=== PATIENT | male | born 1955 | race Caucasian/White ===

== ENCOUNTER 2016-04-10 09:46 | Outpatient (CLI) ==
[2013-08-04 13:20] VITALS: BMI 26.5
[2016-04-10] MEDS ORDERED: LIDOCAINE 1 % AMP 5 ML (SUTURES) IM STA (09:56)
[2016-04-10] MEDS ORDERED: ROCEPHIN IM STA (09:56)
[2016-04-10 10:07] VITALS: BP 136/80; TEMP 98
== END 2016-04-10 09:47 | disposition home or self-care (01) ==
LOC: OPMED 09:46
PROVIDERS: ATTEND Emergency Medicine
DX: J03.90 Acute tonsillitis, unspecified (principal)
CPT/HCPCS: 96372

== ENCOUNTER 2016-04-11 09:45 | Outpatient (CLI) ==
[2013-08-04 13:20] VITALS: BMI 26.5
[2016-04-11] MEDS ORDERED: ROCEPHIN IM STA (09:55)
[2016-04-11] MEDS ORDERED: LIDOCAINE 1 % AMP 5 ML (SUTURES) IM STA (09:55)
[2016-04-11 10:12] VITALS: BP 134/76; TEMP 98.1
== END 2016-04-11 09:46 | disposition home or self-care (01) ==
LOC: OPMED 09:45
PROVIDERS: ATTEND Emergency Medicine
DX: J03.90 Acute tonsillitis, unspecified (principal)
CPT/HCPCS: 96372

== ENCOUNTER 2016-09-11 10:24 | Day surgery (SDC) ==
[2013-08-04 13:20] VITALS: BMI 26.5
[2016-09-11] MEDS ORDERED: DIPRIVAN 20 ML VIAL IVP ONE (13:00)
[2016-09-11] MEDS ORDERED: VERSED ONE (13:00)
[2016-09-11] MEDS ORDERED: ROBINOL ONE (13:00)
[2016-09-11] MEDS ORDERED: ZEMURON ONE (13:00)
[2016-09-11] MEDS ORDERED: LARYNGO-JET TP ONE (13:00)
[2016-09-11] MEDS ORDERED: NEOSTIGMINE IVP ONE (13:00)
[2016-09-11] MEDS ORDERED: SUFENTA IVP ONE (13:00)
[2016-09-11] MEDS ORDERED: ROCEPHIN 1 GM in SODIUM CHLORIDE 50 ML IV ONE ×2 (13:13→13:35)
[2016-09-11] MEDS ORDERED: DEMEROL 25 MG/ML SYRINGE IV ONE (14:35)
[2016-09-11 15:33] VITALS: BP 117/75; TEMP 98.3
--- NOTE | 2016-09-12 11:41 | OP ---
PREOPERATIVE DIAGNOSIS: 1. LEFT PERITONSILLAR ABSCESS POSTOPERATIVE DIAGNOSIS: 1. REMOVAL OF LEFT PERITONSILLAR ABSCESS PROCEDURE: The patient was taken to surgery, placed on the table and general anesthesia was administered. A gastric tube was inserted in the stomach and was suctioned. A Raiza-[place] mouth gag was then inserted and the left tonsil was grasped in the area of the superior pole. Incision was made through the peritonsillar abscess at phlegmon area. Dissection was carried down to the base of the tongue. The tonsil was removed. Synchronized swelling of the tonsillar area as well as pharyngeal wall area. A 22 needle was inserted in the area but no abscess was noted. Bleeding was controlled with cauterization. The patient was then extubated and returned to the recovery room in satisfactory condition. MACIEJ
[2016-09-15 08:36] LABS: ANAEROBIC CULTURE Final report (.)
== END 2016-09-11 15:30 | disposition home or self-care (01) ==
LOC: SURG 10:24
PROVIDERS: ATTEND Otolaryngology
DX: J36 Peritonsillar abscess (principal); D10.4 Benign neoplasm of tonsil
CPT/HCPCS: 36415; 87070; 87075

== ENCOUNTER 2016-11-13 21:04 | Emergency (ER) ==
[2016-11-13 21:20] VITALS: BP 139/93; TEMP 98.4; BMI 27.2
[2016-11-13] MEDS ORDERED: DUONEB NEB STA (21:45)
[2016-11-13] MEDS ORDERED: BENADRYL IM STA (21:45)
[2016-11-13] MEDS ORDERED: SOLU-MEDROL 125 MG IM STA (21:45)
--- NOTE | 2016-11-13 21:53 | ED.PDOC ---
General ED Provider: Dr. KELSEA ALMONTE Chief Complaint: Respiratory Complaint Stated Complaint: Pateint is a 61 year old male who has had nasal drainage sinus conjestion and post nasal drip with cough. He was seen in the clinic and prescribed Cipro which he had a reaction to. Also complains of Epigastric pain with radiation to the esophagus. Time Seen by Physician: 21:47 Mode of Arrival: Walk-In Information Source: Patient Exam Limitations: No limitations Primary Care Provider: KRIS HARRIS Nursing and Triage Documentation Reviewed and Agree: Yes Review of Systems - Review Of Systems Constitutional: Reports: Loss of appetite Eyes: Reports: No symptoms Ears, Nose, Mouth, Throat: Reports: Nose discharge Respiratory: Reports: Cough, Wheezing Cardiac: Reports: No symptoms GI: Reports: Abdominal pain, Nausea, Vomiting : Reports: No symptoms Musculoskeletal: Reports: No symptoms Skin: Reports: No symptoms Neurological: Reports: No symptoms Endocrine: Reports: No symptoms Hematologic/Lymphatic: Reports: No symptoms All Other Systems: Reviewed and Negative Past Medical History - Past Medical History Endocrine: Reports: Dyslipidemia Cardiovascular: Reports: None Respiratory: Reports: None Hematological: Reports: None Gastrointestinal: Reports: Gallstones Genitourinary: Reports: Kidney stones Neuro/Psych: Reports: None Musculoskeletal: Reports: None Cancer: Reports: None - Surgical History General Surgical History: Reports: Cholecystectomy, Tonsillectomy, Other (sinus ) - Family History Family History: Reports: None - Social History Smoking Status: Never smoker Hx Substance Use: No Alcohol Screening: None - Immunizations Tetanus Shot up to Date: Yes Physical Exam - Physical Exam Appearance: Ill-appearing, Thin Ill-appearing: Moderate Pain Distress: Moderate Eyes: APRIL, EOMI, Conjunctiva clear ENT: Rhinorrhea Neck: Supple Respiratory: Airway patent, Breath sounds equal, Breath sounds diminished, Respirations nonlabored Cardiovascular: RRR, Pulses normal, No rub, No murmur GI/: Soft, Nontender Musculoskeletal: Normal strength, ROM intact, No edema, No calf tenderness Skin: Warm, Dry, Normal color Neurological: Sensation intact, Motor intact Psychiatric: Anxious Interpretation - Radiology Interpretation Radiology Interpretation By: Radiologist Radiology Results: Negative Exam Interpreted: CT Scan (abdomen and pelvis ) Radiology Interpretation By: Radiologist Radiology Results: Negative Exam Interpreted: CXR - Ore Charger Rate: Normal Rhythm: Sinus Ectopy: None - EKG Interpretation Time of EKG #1: 22:09 Rate: Normal Rhythm: Sinus Ectopy: None [place]: [place] ST Segment: Normal Re-Evaluation - Re-Evaluation Time of Re-Evaluation: 22:35 Status: Improved (after breathing treatment) Critical Care Note - Critical Care Note Total Time (mins): 35 Course - Course Hematology/Chemistry: 11/13/16 22:17 11/13/16 22:17 Orders, Labs, Meds: Lab Review 11/13/16 11/13/16 22:17 22:17 WBC 13.93 H RBC 5.09 Hgb 15.4 Hct 45.2 MCV 88.8 MCH 30.3 MCHC 34.1 RDW Coeff of Guy 12.5 Plt Count 374 Immature Gran % (Auto) 0.3 Neut % (Auto) 68.5 Lymph % (Auto) 14.9 Burke % (Auto) 7.8 Eos % (Auto) 8.2 H Baso % (Auto) 0.3 Immature Gran # (Auto) 0.0 Neut # 9.6 H Lymph # 2.1 Burke # 1.1 Eos # 1.1 H Baso # 0.0 Sodium 141 Potassium 4.2 Chloride 107 Carbon Dioxide 19 L Anion Gap 19.2 BUN 14 Creatinine 1.04 Estimated GFR (MDRD) 73.00 BUN/Creatinine Ratio 13.46 Glucose 124 H Calcium 9.3 Total Bilirubin 0.61 AST 25 ALT 28 Alkaline Phosphatase 117 Troponin I < 0.0100 Total Protein 7.5 Albumin 3.8 Globulin 3.7 Albumin/Globulin Ratio 1.03 Amylase 259 H Lipase 208 H Orders Category Date Time Status EKG-(ED ONLY) Stat CARDIO 11/13/16 22:04 Completed NEBULIZER TREATMENT Stat CARDIO 11/13/16 21:45 Completed ED IV/MEDIPORT/POWERPORT .ONCE EMERGENCY 11/13/16 22:04 Active AMYLASE Stat LAB 11/13/16 22:17 Completed CBC W/ AUTO DIFF Stat LAB 11/13/16 22:17 Completed COMPREHENSIVE METABOLIC PANEL Stat LAB 11/13/16 22:17 Completed LIPASE Stat LAB 11/13/16 22:17 Completed TROPONIN I Stat LAB 11/13/16 22:17 Completed 0.9 % Sodium Chloride [Saline Flush] MEDS 11/13/16 22:05 Ordered 1 syr IVF PRN PRN Benzonatate [Tessalon Perles] MEDS 11/13/16 23:14 Discontinued 100 mg PO ONCE STA Diphenhydramine Inj [Benadryl] MEDS 11/13/16 21:45 Discontinued 50 mg IM ONCE STA Ipratropium/Albuterol Neb [Duoneb] MEDS 11/13/16 21:45 Discontinued 1 vial NEB ONCE STA Methylprednisolone Sod Succ/Pf [Solu-Medrol 125 mg] MEDS 11/13/16 21:45 Discontinued 125 mg IM ONCE STA Morphine Sulfate [Morphine 4 mg/ml Vial] MEDS 11/13/16 22:06 Discontinued 4 mg IVP ONCE STA Ondansetron HCl/Pf [Zofran 4 mg/2 ml] MEDS 11/13/16 22:05 Discontinued 4 mg IVP ONCE STA Pantoprazole Sodium [Protonix IV] MEDS 11/13/16 22:33 Discontinued 40 mg IVP ONCE STA Sodium Chloride 0.9% [Sodium Chloride] 1,000 ml MEDS 11/13/16 22:[address] ABD/PEL WO RENAL STONE PROT Stat RADS 11/13/16 22:05 Completed Medications Generic Name Dose Route Start Last Admin Trade Name Freq PRN Reason Stop Dose Admin Sodium Chloride 1 syr 11/13/16 22:05 11/13/16 22:44 Saline Flush IVF 1 syr PRN PRN Administration To flush IV Discontinued Medications Generic Name Dose Route Start Last Admin Trade Name Freq PRN Reason Stop Dose Admin Albuterol/Ipratropium 1 vial 11/13/16 21:45 11/13/16 21:57 Duoneb NEB 11/13/16 21:46 1 vial ONCE STA Administration Benzonatate 100 mg 11/13/16 23:14 11/13/16 23:20 Tessalon Perles PO 11/13/16 23:15 100 mg ONCE STA Administration Diphenhydramine HCl 50 mg 11/13/16 21:45 11/13/16 21:56 Benadryl IM 11/13/16 21:46 50 mg ONCE STA Administration Sodium Chloride 1,000 mls @ 1,000 mls/hr 11/13/16 22:05 11/13/16 22:24 Sodium Chloride IV 11/13/16 23:04 1,000 mls/hr BOLUS STA Administration Methylprednisolone Sodium Succinate 125 mg 11/13/16 21:45 11/13/16 21:55 Solu-Medrol 125 Mg IM 11/13/16 21:46 125 mg ONCE STA Administration Morphine Sulfate 4 mg 11/13/16 22:06 11/13/16 22:26 Morphine 4 Mg/Ml Vial IVP 11/13/16 22:07 4 mg ONCE STA Administration Ondansetron HCl 4 mg 11/13/16 22:05 11/13/16 22:25 Zofran 4 Mg/2 Ml IVP 11/13/16 22:06 4 mg ONCE STA Administration Pantoprazole Sodium 40 mg 11/13/16 22:33 11/13/16 22:40 Protonix Iv IVP 11/13/16 22:34 40 mg ONCE STA Administration Vital Signs: Temp Pulse Resp BP Pulse Ox 11/13/16 21:05 98.4 F 86 24 139/93 H 93 L Departure - Departure Time of Disposition: 22:56 Disposition: HOME SELF-CARE Discharge Problem: Abdominal pain Qualifiers: Abdominal location: generalized Qualified Code(s): R10.84 - Generalized abdominal pain Allergic rhinitis Qualifiers: Chronicity: acute Allergic rhinitis trigger: unspecified Allergic rhinitis seasonality: seasonal Qualified Code(s): J30.2 - Other seasonal allergic rhinitis Instructions: Allergic Rhinitis (ED), Rhinosinusitis (ED) Condition: Fair Pt referred to PMD for follow-up: Yes Additional Instructions: Push fluids Take medications as prescribed Follow up with PCP in 3 days. Prescriptions: Benzonatate [Tessalon Perles] 100 mg PO TID PRN #25 capsule PRN Reason: Cold Symptons Ondansetron HCl [Zofran Tab] 4 mg PO Q8H PRN #14 tablet PRN Reason: Nausea / Vomiting Prednisone 10 mg PO BIDWM #21 tablet Allergies/Adverse Reactions: Allergies ibuprofen Adverse Reaction (Severe, Verified 11/13/16 21:53) Difficulty Breathing Cant breathe cephalexin [From Keflex] Adverse Reaction (Verified 11/13/16 21:53) ciprofloxacin [From Cipro] Adverse Reaction (Verified 11/13/16 21:53) Home Medications: Ambulatory Orders Hydrocodone/Acetaminophen [Lortab 7.5-500 Tablet] 1 each PO QID PRN 01/22/13 Mometasone Furoate [Nasonex] 17 gm AMARA DAILY 01/22/13 Montelukast Sodium [Singulair] 10 mg PO DAILY 01/22/13 Ropinirole HCl [Requip] 4 mg PO PRN PRN 01/22/13 Fluticasone/Salmeterol [Advair 250-50 Diskus] 1 inh IH DAILY 08/04/13 Aspirin [Aspirin Chewable] 81 mg PO DAILYWM #30 tab.chew 08/05/13 Simvastatin 5 mg PO DAILY 09/10/16 Benzonatate [Tessalon Perles] 100 mg PO TID PRN #25 capsule 11/13/16 Ondansetron HCl [Zofran Tab] 4 mg PO Q8H PRN #14 tablet 11/13/16 Prednisone 10 mg PO BIDWM #21 tablet 11/13/16 Disposition Discussed With: Patient, Family
[2016-11-13] MEDS ORDERED: ZOFRAN 4 MG/2 ML IVP STA (22:05)
[2016-11-13] MEDS ORDERED: SODIUM CHLORIDE 1,000 ML IV STA (22:05)
[2016-11-13] MEDS ORDERED: MORPHINE 4 MG/ML VIAL IVP STA (22:06)
[2016-11-13 22:21] LABS: BASOPHILS % (AUTO) 0.3 % (0.0-3.0); EOSINOPHILS # (AUTO) 1.1 K/ul (0.0-0.7); EOSINOPHILS % (AUTO) 8.2 % (0.0-7.0); HEMATOCRIT 45.2 % (42.0-52.0); HEMOGLOBIN 15.4 g/dl (14.0-18.0); IMMATURE GRANULOCYTE % (AUTO) 0.3 % (0.0-5.0); LYMPHOCYTES # (AUTO) 2.1 K/uL (0.60-3.4); LYMPHOCYTES % (AUTO) 14.9 (10.0-50.0); MEAN CORPUSCULAR HEMOGLOBIN 30.3 pg (27.0-31.0); MEAN CORPUSCULAR HGB CONC 34.1 (31.8-35.4); MEAN CORPUSCULAR VOLUME 88.8 fl (80.0-94.0); MONOCYTES # (AUTO) 1.1 K/uL (0.4-2.0); MONOCYTES % (AUTO) 7.8 (0-10); NEUTROPHILS # (AUTO) 9.6 K/ul (2.0-6.9); NEUTROPHILS % (AUTO) 68.5; PLATELET COUNT 374 10^3/uL (140-440); RED BLOOD COUNT 5.09 10^6/ul (4.70-6.10); WHITE BLOOD COUNT 13.93 K/ul (4.2-10.2)
[2016-11-13] MEDS ORDERED: PROTONIX IV IVP STA (22:33)
--- NOTE | 2016-11-13 22:40 | CT ---
EXAM: CT of the abdomen and pelvis without contrast. HISTORY: Abdominal pain. PROCEDURE: Contiguous axial CT images of the abdomen and pelvis without contrast with coronal and sa gittal reformats. FINDINGS: The liver is normal in appearance. The gallbladder is surgically absent. The pancreas, sp igor, adrenal glands and kidneys are normal in appearance. No nephrolithiasis or hydronephrosis. The ureters are incompletely visualized. The abdominal aorta is within normal limits in diameter. There is a small hiatal hernia. The appendix is normal in appearance. There is diverticulosis of the colo n with no evidence of diverticulitis. No free fluid or free air in the abdomen or pelvis. The bladd er is minimally filled with no abnormality identified. The seminal vesicles and prostate gland are u nremarkable. There are phleboliths in the lower pelvis. There are degenerative changes in the spine. There are chronic bilateral L5 pars defects. Impression: Diverticulosis of the colon without diverticulitis. Small hiatal hernia. Cholecystectomy.
[2016-11-13 22:47] LABS: ALANINE AMINOTRANSFERASE 28 U/L (12-78); ALBUMIN 3.8 g/dL (3.4-5.0); ALBUMIN/GLOBULIN RATIO 1.03; ALKALINE PHOSPHATASE 117 U/L (56-119); AMYLASE 259 U/L (25-115); ANION GAP 19.2; ASPARTATE AMINO TRANSFERASE 25 U/L (15-37); BILIRUBIN,TOTAL 0.61 mg/dL (0.00-1.20); BLOOD UREA NITROGEN 14 mg/dL (7-18); BUN/CREATININE RATIO 13.46; CALCIUM 9.3 mg/dL (8.2-10.2); CARBON DIOXIDE 19 mmol/L (21-32); CHLORIDE 107 mmol/L (98-107); CREATININE 1.04 mg/dL (0.60-1.10); GLUCOSE 124 mg/dL (70-100); LIPASE 208 U/L (8-78); POTASSIUM 4.2 mmol/L (3.5-5.1); SODIUM 141 mmol/L (136-145); TOTAL PROTEIN 7.5 g/dL (6.4-8.2)
[2016-11-13] MEDS ORDERED: TESSALON PERLES PO STA (23:14)
--- NOTE | 2016-11-14 00:15 | DI ---
EXAM: Two-view chest HISTORY: Cough COMPARISON: Two-view chest 05/15/2015 FINDINGS: The heart is normal in size. Atherosclerotic changes are seen involving the aortic arch.. The lungs are mildly hyperinflated. There is no infiltrate or effusion. IMPRESSION: No acute intrathoracic findings. Mild emphysematous changes
== END 2016-11-14 00:21 | disposition home or self-care (01) ==
LOC: ED 21:04
DX: R10.84 Generalized abdominal pain (principal); J30.2 Other seasonal allergic rhinitis; R05 Cough; R06.2 Wheezing; R11.2 Nausea with vomiting, unspecified; Z79.899 Other long term (current) drug therapy
CPT/HCPCS: 36415; 74176; 80053; 82150; 83690; 84484; 85025; 93005; 93010; 94640; 96361; 96372; 96374; 96375; 99283

== ENCOUNTER 2017-03-21 11:45 | Outpatient (CLI) ==
--- NOTE | 2017-03-21 16:57 | MRI ---
EXAM: MRI cervical spine without IV contrast. DATE: 03/21/2017. HISTORY: Degenerative joint disease. Pain throughout the entire spine. Patient has history of fall s. TECHNIQUE: Sagittal and axial T1W and T2W sequences of the cervical spine along with sagittal IR and coronal T2W sequences were obtained using 1.2 Haydee magnet. No IV contrast. COMPARISON: MRI brain 04 August 2013. MRI T-spine 03/21/2017. FINDINGS: Mild rightward curvature the mid cervical spine is observed. A 1.7 mm anterior subluxatio n of C5 relative to C6 is observed. No other subluxation, acute fracture, osseous malignancy, or jum ped facet is apparent. Cervical vertebra are normal in height. Bone marrow signal is overall normal . Mild disc space narrowing is detected at C4-5. Cervical and upper thoracic spinal cord reveals no definitive syrinx, cord edema, myelomalacia, or neoplasm. Visible brainstem is normal. There is approximate 2.4 mm right and 4.5 mm left cerebellar tonsillar ectopia. Mastoid air cells are unremarkable. Circumferential mucosal thickening is noted in the rig ht maxillary sinus. Trachea, larynx, and epiglottis are normal. No thyroid, submandibular, or parot id gland neoplasm is evident. No suspicious neck mass, cervical lymphadenopathy, apical lung mass, p neumonia, or pleural effusion is identified. Segmental analysis: C2-3: Normal. C3-4: Small posterior disc bulge (1.6 mm AP) does not contact the cord. Canal is 11 mm AP. Each fo ramen is patent. C4-5: Broad posterior disc/osteophyte complex (3.4 mm AP) flattens the cord anteriorly. Canal is 8 mm AP. Mild right and moderate left foraminal stenoses are due to uncinate hypertrophy and mild left facet arthropathy. C5-6: Minor anterior subluxation of C5 and minor pseudodisc bulge do not cause cord compression. Ca nal is 11.7 mm AP. Slight bilateral foraminal narrowing is due to the subluxation and uncinate hyper trophy. There is mild left facet arthropathy. C6-7: Broad posterior disc/osteophyte complex (3 mm AP) does not contact the cord rest; however, cor d is mildly flattened anteriorly. Canal is 9.2 mm AP. Moderate/marked bilateral foraminal stenoses are due to uncinate hypertrophy and mild left facet arthropathy. C7-T1: Minor posterior disc bulge (1.3 mm AP) does not contact the cord. Canal is 11 mm AP. Mild r ight foraminal stenosis is due to uncinate hypertrophy and minor right facet arthropathy. T1-2: Small posterior disc/osteophyte complex does not contact the cord. Canal is 10.7 mm AP. Antony r right foraminal narrowing is due to mild facet arthropathy. IMPRESSIONS: 1. C-spine mild facet arthropathy, minor subluxation at C5-6, and multilevel DDD. 2. Mild/moderate central canal stenosis at C4-5. Mild central stenosis at C6-7. 3. Mild cord flattening at C4-5 and C6-7. No syrinx or myelomalacia. 4. Multilevel foraminal stenoses, especially bilateral C6-7 foramen. 5. Low-lying cerebellar tonsils - borderline vs Chiari 1 malformation. 6. Mild right maxillary sinus mucosal disease.
--- NOTE | 2017-03-21 17:15 | MRI ---
EXAM: MRI lumbar spine without IV contrast. DATE: 03/21/2017. HISTORY: Lumbar degenerative disc disease. Pain throughout the spine. Patient reports history of s jorge fracture. TECHNIQUE: Sagittal and axial T1W and T2W sequences of the lumbar spine along with sagittal IR and c oronal T2W sequences were obtained using 1.2 Haydee magnet. No IV contrast. COMPARISON: Chest x-rays 13 November 2016. MRI T-spine 03/21/2017. MRI L-spine 01/25/2013. FINDINGS: There are five [id number] lumbar vertebra. No lumbar scoliosis is evident. A 1.5 mm anterior subluxation of L5 relative to L4 and a 2 mm anterolisthesis of L5 relative to S1 are noted. No other subluxation, acute fracture, or osseous malignancy. Bilateral pars interarticularis defec t are demonstrated. Lumbar vertebra are normal in height. Bone marrow signal is overall normal. An terior/lateral small osteophytes are demonstrated at several levels. Disc desiccation is revealed at each level from L2-3 through L5-S1. Minor L2-3, mild/moderate L3-4, and mild L5-S1 disc space narro wing is detected. No acute sacral fracture or stress reaction is apparent. No acute sacroiliitis is identified. Conus medullaris terminates at L1. Visible spinal cord is normal. No retroperitoneal lymphadenopathy, paraspinal mass, or aortic aneurysm is detected. Paraspinal musc ulature is symmetric bilaterally. Visible portions of the liver, spleen, right adrenal gland kidneys are grossly normal, but limited by breathing motion artifacts. T2W/T1W apparent fullness is observe d near the left adrenal miryam, without definitive lesion. A few descending colon diverticuli are susp ected. Segmental analysis: T12-L1: Normal. L1-2: Minimal left foraminal to far lateral disc bulge and mild facet arthropathy cause mild bilater al foraminal stenoses. No central canal stenosis. L2-3: Small concentric disc bulge, mild bilateral facet arthropathy, mild ligamentum flavum hypertro phy and dorsal epidural fat cause mild central canal stenosis and moderate /marked narrowing at the o pening to each foramen. Left L2 nerve root contacts the disc bulge near the lateral margin of the fo ramen. L3-4: Small concentric disc bulge, mild facet arthropathy, and mild ligamentum flavum hypertrophy ca use mild central canal stenosis and moderate /marked narrowing at the opening to each foramen. Left L3 nerve root contacts the disc bulge near the lateral margin the foramen. L4-5: Minor anterior subluxation of L4, small concentric disc bulge, posterior midline disc protrusi on (2.7 mm AP x 12 mm transverse) and minor facet disease cause mild central canal stenosis and moder ate narrowing at the opening to each foramen. L5-S1: Minor anterior subluxation of L5, bilateral L5 pars defects, small concentric disc bulge, and minor facet disease cause mild bilateral foraminal narrowing. No central canal stenosis. Each L5 n erve root contacts the disc bulge lateral to the foramen. No central canal stenosis. IMPRESSIONS: 1. L-spine mild spondylosis, mild facet arthropathy, minor subluxations, and multilevel DDD. 2. Multilevel high-grade lumbar foraminal stenoses. Left L2, left L3, and both L5 nerve roots conta ct disc bulges near the foramen, and may be sources for pain/radiculopathy. 3. Mild central canal stenoses at L2-3, L3-4 and L4-5. 4. Descending colon diverticulosis (minor).
--- NOTE | 2017-03-21 18:44 | MRI ---
EXAM: MRI thoracic spine without IV contrast. DATE: 03/21/2017. HISTORY: Thoracic disc disease. Pain throughout the entire spine S/P fall. Patient reports history of spine fractures. TECHNIQUE: Sagittal T2W, sagittal T1W, sagittal IR, coronal T2W, axial T2W, and axial T1W sequences of the thoracic spine were obtained using 1.2 Haydee magnet. No IV contrast. COMPARISON: MRI C-spine and L-spine 03/21/2017. PA/lateral chest 13 November 2016. FINDINGS: There are 12 thoracic vertebra with paired ribs. Slight rightward curvature of the upper thoracic spine is noted. No acute T-spine fracture, subluxation, osseous malignancy, or jumped facet is evident. Mild anterior wedge appearance of the T7 vertebral body is chronic. Chronic Schmorl's nodes are identified at T6, T7, and T8. Thoracic intervertebral discs are normal in height. Bone ma rrow signal is overall normal. Conus medullaris terminates at T12-L1. No cord edema, syrinx, myelom alacia, or neoplasm is evident. Visible thyroid gland, trachea, mainstem bronchi, thoracic esophagus, and thoracic aorta are unremark able. No definitive mediastinal lymphadenopathy or mass, hilar lymphadenopathy, pneumonia, periphera l lung mass, or pleural effusion is revealed. No acute rib fracture, paraspinal mass, or chest wall malignancy is seen. Bilateral AC joint arthritis is noted. No glenohumeral joint dislocation or cisco ulder malignancy is detected. Visible portions of the liver, spleen, adrenal glands and kidneys reve al no definitive malignancy. Segmental analysis: T1-2: Minor posterior disc bulge does not cause cord compression or central stenosis. Minor right f oraminal narrowing is due to uncinate hypertrophy. T2-3: Normal. T3-4: No disc protrusion or central stenosis. Mild right foraminal narrowing is due to mild right f acet arthropathy. T4-5: Normal. T5-6: Normal, except for minor left facet arthropathy. T6-7: Small posterior disc bulge does not contact the cord or cause central stenosis. The mild/mode rate bilateral foraminal stenoses due to uncinate hypertrophy and mild facet arthropathy. T7-8: Normal. T8-9: Normal. T9-10: No disc protrusion or central stenosis. Minor bilateral foraminal stenoses due to facet arth ropathy. T10-11: No disc protrusion or central stenosis. Moderate bilateral foraminal stenoses due to mild b ilateral facet arthropathy. T11-12: No disc protrusion or central stenosis. Mild right foraminal narrowing is due to mild facet arthropathy. IMPRESSIONS: 1. Thoracic spine mild dextroscoliosis, mild facet arthropathy, and mild DDD. 2. Multilevel thoracic foraminal stenoses as described. 3. No T-spine cord compression or central stenosis. 4. Chronic, mild wedge compression at T7 vertebra. 5. Small, chronic Schmorl's nodes at T6, T7, and T8. 6. Bilateral AC joint arthritis.
== END 2017-03-21 11:46 | disposition home or self-care (01) ==
LOC: RAD 11:45
PROVIDERS: ATTEND Internal Medicine
DX: M47.9 Spondylosis, unspecified (principal)

== ENCOUNTER 2020-05-29 07:41 | Inpatient (IN) ==
[2020-05-29] MEDS ORDERED: SOLU-MEDROL 125 MG IVP ONE (07:54)
[2020-05-29] MEDS ORDERED: VENTOLIN HFA (PER PUFF-WITH SPACER) IH STA (07:54)
[2020-05-29] MEDS ORDERED: ATROVENT HFA INHALER (PER PUFF-WITH SPACER) IH STA (07:54)
[2020-05-29] MEDS ORDERED: CATAPRES PO ONE (07:59)
--- NOTE | 2020-05-29 08:08 | ED.PDOC ---
General ED Provider: Dr. SHANA GARCIA MD Chief Complaint: Shortness of Air Stated Complaint: increasing SOB, cough and mild wheezing x 1 week. no fever Time Seen by Provider: 05/29/20 07:46 Mode of Arrival: Walk-In Information Source: Patient Exam Limitations: No limitations Primary Care Provider: KRIS HARRIS Nursing and Triage Documentation Reviewed and Agree: Yes Does patient meet sepsis criteria?: No System Inflammatory Response Syndrome: Not Applicable Sepsis Protocol: For patient's 13 years and over: Temp is 96.8 and below OR 101 and greater Pulse >90 BPM Resp >20/minute Acutely Altered Mental Status Are patient's symptoms suggestive of a new infection, such as: -Pneumonia -Skin, Soft Tissue -Endocarditis -UTI -Bone, Joint Infection -Implantable Device -Acute Abdominal Infection -Wound Infection -Meningitis -Blood Stream Catheter Infection -Unknown Respiratory Complaint Exam Shortness of Air Complaint/Exam Onset/Duration: 1 week Symptoms Are: Still present Timing: Constant Initial Severity: Mild Current Severity: Moderate Character: Reports Dyspnea on exertion Aggravating: Reports Allergens Alleviating: Reports Bronchodilators Associated Signs and Symptoms: Reports Cough, Wheezing and Nasal congestion Home Oxygen Use: No Respiratory Distress: Mild Stridor Present: No Subcutaneous Emphysema: No Accessory Muscle Use: Yes Retractions: Intercostal Diminished Breath Sounds: No Unable to Speak Full Sentences: No Fatigue: No Leg Swelling: No Beverly's Sign Present: No Grunting Respirations: No Kussmaul Respirations: No Differential Diagnoses: COPD Exacerbation, Bronchitis, Bronchospasm, Sinusitis and URI Review of Systems Review Of Systems Constitutional: Reports No symptoms Eyes: Reports No symptoms Ears, Nose, Mouth, Throat: Reports No symptoms Respiratory: Reports Cough, Short of air and Wheezing Cardiac: Reports No symptoms GI: Reports No symptoms : Reports No symptoms Musculoskeletal: Reports No symptoms Skin: Reports No symptoms Neurological: Reports No symptoms Endocrine: Reports No symptoms Hematologic/Lymphatic: Reports No symptoms All Other Systems: Reviewed and Negative [facility] Medical History History of seasonal allergies Family History Mother Cardiac disease BROTHER Cancer MATERNAL GRANDFATHER Hypertension Social History Smoking and tobacco status: Never smoker Surgical History Colectomy History of ear, nose, and throat (ENT) surgery Status post cholecystectomy Physical Exam Physical Exam Appearance: Reports Ill-appearing and Well-nourished Ill-appearing: Mild Pain Distress: None Eyes: Reports APRIL, EOMI and Conjunctiva clear ENT: Reports Ears normal, Nose normal and Erythema Neck: Supple Respiratory: Reports Airway patent, Rhonchi and Wheezes Cardiovascular: Reports RRR, Pulses normal, No rub and No murmur GI/: Reports Soft, Nontender, No masses, Bowel sounds normal and No Organomegaly Musculoskeletal: Reports Normal strength, ROM intact, No edema and No calf tenderness Skin: Reports Warm and Dry Neurological: Reports Sensation intact, Motor intact, Reflexes intact and Cranial nerves intact Psychiatric: Reports Affect appropriate and Mood appropriate Interpretation Radiology Interpretation Radiology Interpretation By: Radiologist Re-Evaluation Re-Evaluation Time of Re-Evaluation: 08:40 Status: Improved Vital Signs Stable: Yes Pain Level: 0 Appearance: NAD Lungs: Clear Skin: Warm and Dry Neuro: Alert and Oriented X3 CV: RRR Critical Care Note Critical Care Note Total Critical Care Time (mins): 0 Course Course Hematology/Chemistry: 05/29/20 08:05 05/29/20 08:05 Orders, Labs, Meds: Lab Review 05/29/20 05/29/20 05/29/20 08:05 08:05 08:05 WBC 8.50 RBC 4.95 Hgb 15.0 Hct 43.9 MCV 88.7 MCH 30.3 MCHC 34.2 RDW Coeff of Guy 12.4 Plt Count 263 Immature Gran % (Auto) 0.1 Neut % (Auto) 64.2 Lymph % (Auto) 12.7 [place] % (Auto) 7.1 Eos % (Auto) 15.4 H Baso % (Auto) 0.5 Neut # (Auto) 5.5 Lymph # (Auto) 1.1 [place] # (Auto) 0.6 Eos # (Auto) 1.3 H Baso # (Auto) 0.0 Immature Gran # (Auto) 0.0 Sodium 139.5 Potassium 3.61 Chloride 105.0 Carbon Dioxide 26.0 Anion Gap 12.11 BUN 9.0 Creatinine 0.75 Estimated GFR (MDRD) 106.00 BUN/Creatinine Ratio 12.00 Glucose 157.6 H Calcium 9.41 Total Bilirubin 0.95 AST 37.7 ALT 35.4 Alkaline Phosphatase 91.3 NT-Pro-B Natriuret Pep 57.700 Total Protein 7.63 Albumin 4.35 Globulin 3.28 Albumin/Globulin Ratio 1.32 Adenovirus (PCR) Not detected B. pertussis DNA (PCR) Not detected B.parapertussis DNA PCR Not detected C. pneumoniae DNA (PCR) Not detected Coronavirus OC43 (PCR) Not detected Coronavirus HKU1 (PCR) Not detected Coronavirus 229E (PCR) Not detected Coronavirus NL63 (PCR) Not detected Human Metapneumovir PCR Not detected Influenza Type A (PCR) Not detected Influenza B (RT-PCR) Not detected M. pneumoniae (PCR) Not detected Parainfluenza 1 (PCR) Not detected Parainfluenza 2 (PCR) Not detected Parainfluenza 3 (PCR) Not detected Parainfluenza 4 (PCR) Not detected RSV (PCR) Not detected Entero/Rhino (PCR) Detected H SARS-CoV-2 (PCR) Not detected Orders Category Date Time Status EKG-(ED ONLY) Stat CARDIO 05/29/20 07:54 Completed METERED DOSE INHALATION Routine CARDIO 05/29/20 07:54 Completed BLOOD CULTURE (ED ONLY) Stat LAB 05/29/20 09:37 Ordered CBC W/ AUTO DIFF Stat LAB 05/29/20 08:05 Completed COMPREHENSIVE METABOLIC PANEL Stat LAB 05/29/20 08:05 Completed NT-PROBNP Stat LAB 05/29/20 08:05 Completed RESPIRATORY PANEL 2.1 (PCR) Stat LAB 05/29/20 08:05 Completed Albuterol Inhaler(with Spacer) [Ventolin Hfa (Per Puff- MEDS 05/29/20 07:54 Discontinued with Spacer)] 2 puff IH ONCE STA Ceftriaxone/D5w 1 gm Premix [Rocephin 1 gm/50 ml D5w] MEDS 05/29/20 09:19 Discontinued 1 gm in 50 ml IV ONCE Clonidine HCl [Catapres] MEDS 05/29/20 07:59 Discontinued 0.2 mg PO ONCE ONE Guaifenesin/Dextromethorphan [Mucinex Dm ER 600-30 mg MEDS 05/29/20 08:00 Active Tablet] 1 each PO Q12HR Ipratropium Inhaler(Spacer) [Atrovent Hfa Inhaler (Per MEDS 05/29/20 07:54 Discontinued Puff-with Spacer)] 2 puff IH ONCE STA Methylprednisolone Sod Succ/Pf [Solu-Medrol 125 mg] MEDS 05/29/20 08:14 Discontinued 125 mg IM ONCE STA Methylprednisolone Sod Succ/Pf [Solu-Medrol 125 mg] MEDS 05/29/20 07:54 Discontinued 125 [address] IVP ON[address] CHEST W/O CONTRAST Stat RADS 05/29/20 07:54 Completed Medications Generic Name Dose Route Start Last Admin Trade Name Freq PRN Reason Stop Dose Admin Acetaminophen 650 mg 05/29/20 10:01 Acetaminophen 325 Mg Tablet PO Q8H PRN Mild/Moderate Pain Albuterol Sulfate 2 puff 05/29/20 14:00 Albuterol Sulfate (Ventolin Hfa) 18 Gm 1 Puff With Spacer IH RTQID [facility] Guaifenesin/Dextromethorphan 1 each 05/29/20 08:00 05/29/20 10:02 Guaifenesin/Dextromethorphan 1 Each Tab.Er.12h PO Not Given Q12HR [facility] Sodium Chloride 1,000 mls @ 75 mls/hr 05/29/20 10:30 Sodium Chloride IV .[id number] [facility] CEFTRIAXONE/D5W 1 GM PREMIX 1 gm in 50 mls @ 75 mls/hr 05/30/20 09:00 Rocephin 1 Gm/50 Ml D5w IV 06/02/20 08:59 DAILY [facility] Azithromycin 500 mg/ Sodium 250 mls @ 125 mls/hr 05/29/20 10:30 Chloride IV 05/31/20 10:59 DAILY [facility] Ipratropium [place] 2 puff 05/29/20 14:00 Ipratropium [place] 12.9 Gm Hfa Inhaler Per Puff With Spacer IH RTQID [facility] Methylprednisolone Sodium Succinate 125 mg 05/29/20 13:00 Methylprednisolone Sod Succ/Pf 125 Mg/2 Ml Vial IVP Q8HR ANGELIKA Discontinued Medications Generic Name Dose Route Start Last Admin Trade Name Freq PRN Reason Stop Dose Admin Albuterol Sulfate 2 puff 05/29/20 07:54 05/29/20 08:20 Albuterol Sulfate (Ventolin Hfa) 18 Gm 1 Puff With Spacer IH 05/29/20 07:55 2 puff ONCE STA Administration Clonidine 0.2 mg 05/29/20 07:59 05/29/20 08:58 Clonidine Hcl 0.1 Mg Tablet PO 05/29/20 08:00 Not Given ONCE ONE CEFTRIAXONE/D5W 1 GM PREMIX 1 gm in 50 mls @ 75 mls/hr 05/29/20 09:19 05/29/20 09:49 Rocephin 1 Gm/50 Ml D5w IV 05/29/20 09:58 75 mls/hr ONCE STA Administration Ipratropium [place] 2 puff 05/29/20 07:54 05/29/20 08:20 Ipratropium [place] 12.9 Gm Hfa Inhaler Per Puff With Spacer IH 05/29/20 07:55 2 puff ONCE STA Administration Methylprednisolone Sodium Succinate 125 mg 05/29/20 07:54 05/29/20 08:29 Methylprednisolone Sod Succ/Pf 125 Mg/2 Ml Vial IVP 05/29/20 07:55 Not Given ONCE ONE Methylprednisolone Sodium Succinate 125 mg 05/29/20 08:14 05/29/20 08:24 Methylprednisolone Sod Succ/Pf 125 Mg/2 Ml Vial IM 05/29/20 08:15 125 mg ONCE STA Administration Vital Signs: Temp Pulse Resp BP Pulse Ox 05/29/20 07:41 97.2 F L 89 20 190/104 H 96 Discharge Plan Discharge Patient Disposition: ADMITTED INPATIENT Discharge Problem: Pneumonia ED Provider: SHANA GARCIA Condition: Serious Physician Progress Note: []Pt was d/w Dr Harris and will be admitted: see orders.
[2020-05-29 08:10] LABS: BASOPHILS % (AUTO) 0.5 % (0.0-3.0); EOSINOPHILS # (AUTO) 1.3 K/ul (0.0-0.7); EOSINOPHILS % (AUTO) 15.4 % (0.0-7.0); HEMATOCRIT 43.9 % (42.0-52.0); IMMATURE GRANULOCYTE % (AUTO) 0.1 % (0.0-5.0); LYMPHOCYTES # (AUTO) 1.1 K/uL (0.60-3.4); LYMPHOCYTES % (AUTO) 12.7 (10.0-50.0); MEAN CORPUSCULAR HEMOGLOBIN 30.3 pg (27.0-31.0); MEAN CORPUSCULAR HGB CONC 34.2 (31.8-35.4); MEAN CORPUSCULAR VOLUME 88.7 fl (80.0-94.0); MONOCYTES # (AUTO) 0.6 K/uL (0.4-2.0); MONOCYTES % (AUTO) 7.1 (0-10); NEUTROPHILS # (AUTO) 5.5 K/ul (2.0-6.9); NEUTROPHILS % (AUTO) 64.2 % (42.2-75.2); PLATELET COUNT 263 10^3/uL (140-440); RDW COEFFICIENT OF VARIATION 12.4 % (11.6-14.8); RED BLOOD COUNT 4.95 10^6/ul (4.70-6.10)
[2020-05-29] MEDS ORDERED: SOLU-MEDROL 125 MG IM STA (08:14)
[2020-05-29] MEDS: MUCINEX DM ER 600-30 MG TABLET PO SCH ×4 (08:23→20:11)
[2020-05-29 08:24] LABS: ALANINE AMINOTRANSFERASE 35.4 U/L (0-50); ALBUMIN 4.35 g/dL (3.5-5.0); ALKALINE PHOSPHATASE 91.3 U/L (56-119); ASPARTATE AMINO TRANSFERASE 37.7 U/L (17-59); BILIRUBIN,TOTAL 0.95 mg/dL (0.2-1.3); CALCIUM 9.41 mg/dL (8.4-10.2); CREATININE 0.75 mg/dL (0.60-1.10); GLUCOSE 157.6 mg/dL (74-106); POTASSIUM 3.61 mmol/L (3.5-5.1); SODIUM 139.5 mmol/L (134.5-145); TOTAL PROTEIN 7.63 g/dL (6.3-8.2)
[2020-05-29 08:32] LABS: NT-PROBNP 57.7 pg/mL (0-124)
--- NOTE | 2020-05-29 09:15 | CT ---
EXAM: CT chest without contrast HISTORY: Increasing shortness of breath COMPARISON: None TECHNIQUE: CT chest performed without intravenous contrast. Coronal and sagittal reformatted images obtained. FINDINGS: The thoracic inlet unremarkable. Heart normal in size. Coronary calcifications. No stephanie cardial effusion. Aorta normal in caliber. Mild atherosclerosis. Evaluation for lymphadenopathy li mited without contrast. No lymphadenopathy identified in the chest. Calcified lymph nodes, consiste nt with old granulomatous disease. Visualized portion upper abdomen demonstrates no acute abnormalit y. Patient status post cholecystectomy. Granulomas calcification spleen. No acute abnormalities of the bones. Degenerative change in the spine. Central airway patent. Bilateral lower airway thicke tomas. Mild left basilar ground-glass. Cyst right lung base. IMPRESSION: 1. Bilateral lower airway thickening, suggesting small airways infection/inflammation. Mild left ba silar ground-glass may relate to atelectasis or infectious/inflammatory etiology. 2. Coronary calcifications. All CT scans are performed using dose optimization techniques as appropriate to the performed exam an d include at least one of the following: Automated exposure control, adjustment of the mA and/or kV according t o size, and the use of iterative reconstruction technique.
[2020-05-29] MEDS ORDERED: ROCEPHIN 1 GM/50 ML D5W 1 GM/50 ML BAG IV STA (09:19)
[2020-05-29] MEDS ORDERED: TYLENOL PO PRN (10:01)
[2020-05-29] MEDS ORDERED: ZITHROMAX 500 MG in SODIUM CHLORIDE 250 ML IV SCH (10:30)
[2020-05-29 10:57] VITALS: BMI 28.2
[2020-05-29] MEDS: SODIUM CHLORIDE 1,000 ML IV SCH (11:32)
[2020-05-29 12:01] LABS: BILIRUBIN,URINE Negative (NEGATIVE); CLARITY,URINE Clear (CLEAR); COLOR,URINE Yellow (YELLOW); GLUCOSE, URINE (UA) Negative (NEGATIVE); KETONES,URINE Negative (NEGATIVE); LEUKOCYTE ESTERASE ,URINE Negative (NEGATIVE); NITRITE,URINE Negative (NEGATIVE); PH,URINE 8.5 (5-9); PROTEIN,URINE Negative (NEGATIVE); URINE, BLOOD Negative (NEGATIVE); UROBILINOGEN,URINE 0.2 (0.2)
[2020-05-29] MEDS: ZITHROMAX PO SCH (13:06)
[2020-05-29] MEDS: SOLU-MEDROL 125 MG IVP SCH ×2 (15:13→20:11)
[2020-05-29] MEDS: ATROVENT HFA INHALER (PER PUFF-WITH SPACER) IH SCH ×2 (16:55→23:25)
[2020-05-29] MEDS: VENTOLIN HFA (PER PUFF-WITH SPACER) IH SCH ×2 (16:55→23:25)
[2020-05-29] MEDS: NORCO 7.5-325 PO PRN (18:26)
[2020-05-30] MEDS: SODIUM CHLORIDE 1,000 ML IV SCH ×3 (03:45→17:50)
[2020-05-30] MEDS: ATROVENT HFA INHALER (PER PUFF-WITH SPACER) IH SCH (04:55)
[2020-05-30] MEDS: VENTOLIN HFA (PER PUFF-WITH SPACER) IH SCH (04:55)
[2020-05-30 05:00] LABS: HEMATOCRIT 40.8 % (42.0-52.0); HEMOGLOBIN 14.1 g/dl (14.0-18.0); MEAN CORPUSCULAR HEMOGLOBIN 30.3 pg (27.0-31.0); MEAN CORPUSCULAR HGB CONC 34.6 (31.8-35.4); MEAN CORPUSCULAR VOLUME 87.7 fl (80.0-94.0); PLATELET COUNT 257 10^3/uL (140-440); RDW COEFFICIENT OF VARIATION 12.4 % (11.6-14.8); RED BLOOD COUNT 4.65 10^6/ul (4.70-6.10); WHITE BLOOD COUNT 7.69 K/ul (4.2-10.2)
[2020-05-30] MEDS: SOLU-MEDROL 125 MG IVP SCH ×4 (05:05→23:38)
[2020-05-30 05:12] LABS: ANISOCYTOSIS NOT PRESENT (NOT PRESENT)
[2020-05-30 05:13] LABS: ALANINE AMINOTRANSFERASE 51.7 U/L (0-50); ALBUMIN 4.02 g/dL (3.5-5.0); ALKALINE PHOSPHATASE 90.5 U/L (56-119); ASPARTATE AMINO TRANSFERASE 47.6 U/L (17-59); BILIRUBIN,TOTAL 0.48 mg/dL (0.2-1.3); BLOOD UREA NITROGEN 13.1 mg/dL (9-20); CALCIUM 9.39 mg/dL (8.4-10.2); CARBON DIOXIDE 26.6 mmol/L (22-30.0); CHLORIDE 105.9 mmol/L (98-107); CREATININE 0.75 mg/dL (0.60-1.10); GLUCOSE 155.8 mg/dL (74-106); POTASSIUM 4.38 mmol/L (3.5-5.1); SODIUM 137.8 mmol/L (134.5-145); TOTAL PROTEIN 7.08 g/dL (6.3-8.2)
[2020-05-30] MEDS ORDERED: ATROPINE SULFATE PFS IVP PRN (07:04)
[2020-05-30] MEDS ORDERED: NITROSTAT SL PRN (07:04)
[2020-05-30 07:27] LABS: CREATINE KINASE 106.4 U/L (55-170)
[2020-05-30 07:57] LABS: TROPONIN I < 0.012 ng/ml (0.0000-0.120)
[2020-05-30] MEDS ORDERED: ATIVAN PO PRN (08:28)
[2020-05-30] MEDS ORDERED: COZAAR PO SCH (09:00)
[2020-05-30] MEDS ORDERED: ROCEPHIN 1 GM/50 ML D5W 1 GM/50 ML BAG IV SCH (09:00)
[2020-05-30] MEDS: PHENERGAN WITH CODEINE 6.25/10 MG/5 ML PO PRN ×2 (09:09→20:34)
[2020-05-30] MEDS: NORCO 7.5-325 PO PRN (09:09)
[2020-05-30] MEDS: ZITHROMAX PO SCH (09:10)
[2020-05-30] MEDS: COZAAR PO SCH ×2 (09:10→20:34)
[2020-05-30] MEDS: LIPITOR PO SCH (09:10)
[2020-05-30] MEDS: NORVASC PO SCH ×2 (09:11→20:34)
--- NOTE | 2020-05-30 09:12 | PCM.PROG ---
Attending Provider: ATTENDING PROVIDER: Dr. KRIS HARRIS This patient is seen with Yaa Angeles, Nurse Practitioner. DATE OF SERVICE: 05/30/20 SUBJECTIVE: This 64 year old /WHITE M was hospitalized 05/29/20. The patient is lying in bed resting comfortably. He has signiiciant wheezing. He states shortness of breath has not improved much. Blood pressure is elevated. He has a headache this a.m. REVIEW OF SYSTEMS: CONSTITUTIONAL: No night sweats. No fatigue, malaise, lethargy. No fever or chills. HEENT: Eyes: No visual changes. No eye pain. No eye discharge. ENT: No runny nose. No epistaxis. No sinus pain. No odynophagia. No congestion. RESPIRATORY: Cough, wheezing with shortness of breath. No hemoptysis. CARDIOVASCULAR: No angina symptoms. No CHF symptoms. No atypical chest pain for CAD. No palpitations. No orthopnea.. GASTROINTESTINAL: No abdominal pain. No nausea or vomiting. No diarrhea or constipation. No hematemesis. No hematochezia. GENITOURINARY: No urgency. No frequency. No dysuria. No hematuria. No obstructive symptoms. No discharge. No pain. No significant abnormal bleeding. MUSCULOSKELETAL: No musculoskeletal pain; no joint swelling. NEUROLOGICAL: Awake, alert, oriented to time, place and person. No headache. No neck pain. No syncope. No seizures. No dizziness. PSYCHIATRIC: Not anxious. No depression. No suicidal thoughts. No homicidal thoughts. SKIN: No rash. No lesions. No wounds. ENDOCRINE: No unexplained weight loss. No weight gain. HEMATOLOGIC/LYMPHATIC: No anemia. No purpura. No petechiae. No prolonged or excessive bleeding. No palpable lymph nodes. PHYSICAL EXAMINATION: GENERAL: The patient is awake, alert and oriented, lying/sitting in bed in no distress. VITAL SIGNS: Temperature 97.2 F, Pulse 82, Respiratory Rate 18, BP 189/91, Pulse Ox 97% HEENT: Head normocephalic, atraumatic. Eyes: Extraocular muscles are intact. Pupils are equal, round and reactive to light and accommodation. Ears: No lesions. Nose appeared normal. Throat: No exudate or erythema. NECK: Supple. No JVD, no carotid bruit. No lymphadenopathy or thyromegaly. LUNGS: Bilateral inspiratory and expiratory wheezing with bilateral rhonchi. Percussion note normal. Chest symmetrical. HEART: S1, S2, no S3. No murmurs. No cyanosis or clubbing. No ascites. Pulses: Dorsalis pedis and posterior tibial pulses +1 to +2 both sides. ABDOMEN: Soft. Non-tender. Bowel sounds active. No CVA tenderness. No mass felt. EXTREMITIES: No edema. Full range of motion of all extremities, equal. NEUROLOGIC: No focal deficit. Cranial nerves II through XII are grossly intact. No headache. No double vision. SKIN: Not dry. Intact. Turgor-normal. LYMPHATIC: No palpable lymph nodes/no lymphedema. MUSCULOSKELETAL: Normal joints with no swelling. Muscle tone is normal. LAB REVIEW: 05/30/20 04:54 05/30/20 04:54 05/30/20 04:54: Total Creatine Kinase 106.4, Troponin I < 0.012 05/30/20 04:54: Sodium 137.8, Potassium 4.38, Chloride 105.9, Carbon Dioxide 26.6, Anion Gap 9.68, BUN 13.1, Creatinine 0.75, Estimated GFR (MDRD) 106.00, BUN/Creatinine Ratio 17.46, Glucose 155.8 H, Calcium 9.39, Total Bilirubin 0.48, AST 47.6, ALT 51.7 H, Alkaline Phosphatase 90.5, Total Protein 7.08, Albumin 4.02, Globulin 3.06, Albumin/Globulin Ratio 1.31 05/30/20 04:54: WBC 7.69, RBC 4.65 L, Hgb 14.1, Hct 40.8 L, MCV 87.7, MCH 30.3, MCHC 34.6, RDW Coeff of Guy 12.4, Plt Count 257, Neutrophils % (Manual) 91.0 H, Lymphocytes % (Manual) 7.0 L, Monocytes % (Manual) 2.0, Anisocytosis Not present 05/29/20 11:37: Urine Color Yellow, Urine Clarity Clear, Urine pH 8.5, Ur Specific [place] 1.020, Urine Protein Negative, Urine Glucose (UA) Negative, Urine Ketones Negative, Urine Blood Negative, Urine Nitrite Negative, Urine Bilirubin Negative, Urine Urobilinogen 0.2, Ur Leukocyte Esterase Negative 05/29/20 08:05: Troponin I < 0.012 05/29/20 08:05: Adenovirus (PCR) Not detected, B. pertussis DNA (PCR) Not detected, B.parapertussis DNA PCR Not detected, C. pneumoniae DNA (PCR) Not detected, Coronavirus OC43 (PCR) Not detected, Coronavirus HKU1 (PCR) Not detected, Coronavirus 229E (PCR) Not detected, Coronavirus NL63 (PCR) Not detected, Human Metapneumovir PCR Not detected, Influenza Type A (PCR) Not detected, Influenza B (RT-PCR) Not detected, M. pneumoniae (PCR) Not detected, Parainfluenza 1 (PCR) Not detected, Parainfluenza 2 (PCR) Not detected, Parainfluenza 3 (PCR) Not detected, Parainfluenza 4 (PCR) Not detected, RSV (PCR) Not detected, Entero/Rhino (PCR) Detected H, SARS-CoV-2 (PCR) Not detected 05/29/20 08:05: Sodium 139.5, Potassium 3.61, Chloride 105.0, Carbon Dioxide 26.0, Anion Gap 12.11, BUN 9.0, Creatinine 0.75, Estimated GFR (MDRD) 106.00, BUN/Creatinine Ratio 12.00, Glucose 157.6 H, Calcium 9.41, Total Bilirubin 0.95, AST 37.7, ALT 35.4, Alkaline Phosphatase 91.3, NT-Pro-B Natriuret Pep 57.700, Total Protein 7.63, Albumin 4.35, Globulin 3.28, Albumin/Globulin Ratio 1.32 05/29/20 08:05: WBC 8.50, RBC 4.95, Hgb 15.0, Hct 43.9, MCV 88.7, MCH 30.3, MCHC 34.2, RDW Coeff of Guy 12.4, Plt Count 263, Immature Gran % (Auto) 0.1, Neut % (Auto) 64.2, Lymph % (Auto) 12.7, [place] % (Auto) 7.1, Eos % (Auto) 15.4 H, Baso % (Auto) 0.5, Neut # (Auto) 5.5, Lymph # (Auto) 1.1, [place] # (Auto) 0.6, Eos # (Auto) 1.3 H, Baso # (Auto) 0.0, Immature Gran # (Auto) 0.0 ASSESSMENT: Please see below. 1. Bilateral pneumonia. 2. Shortness of breath. 3. Hypertension. 4. Headache. PLAN: 1. ABG on room air. 2. Pulmicort neb 1 mg b.i.d. 3. Duoneb q.6hr. 4. D/C Atrovent and Albuterol inhaler. 5. Solu-Medrol q.6hr. 6. Phenergan with Codeine 1 to 2 tsp q.8hr p.r.n. 7. Norvasc 5 mg b.i.d. 8. Increase Losartan to 50 mg b.i.d. 9. Ativan 1 mg p.o. p.r.n. bedtime for sleep. Plan and coordination of the patient's care discussed in the presence of Historical [employer] Director and nurse. CONDITION: Stable SCRIBED BY: ABBY GONZALES Software Developer Intern scribed while in presence of service performed by Dr. Harris/Yaa Angeles APRN on 05/30/20 ([id number])
[2020-05-30] MEDS: MUCINEX DM ER 600-30 MG TABLET PO SCH ×2 (09:14→20:34)
[2020-05-30] MEDS: ZAFIRLUKAST 20 MG PO SCH (09:14)
[2020-05-30] MEDS ORDERED: CATAPRES PO ONE (10:38)
[2020-05-30] MEDS: DUONEB NEB SCH ×3 (11:05→23:30)
--- NOTE | 2020-05-30 13:32 | HP ---
DATE OF SERVICE: 05/29/2020 REASON FOR HOSPITALIZATION: Shortness of air. HISTORY OF PRESENT ILLNESS: 64 year old white male presented to the emergency room with shortness of breath, cough and wheezing of nearly one week duration and denied of any fever or chills. The patient's COVID test was negative in the emergency room. He has been working under the house to key up the house and a lot of mold underneath the house. PAST MEDICAL HISTORY/PAST SURGICAL HISTORY: History of mold allergy followed by Dr. 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 No fever or chills. Weakness and fatigue. HEENT: Eyes: No visual changes. No eye pain. No eye discharge. ENT: No runny nose. No epistaxis. No sinus pain. No sore throat. No odynophagia. No ear pain. No congestion. RESPIRATORY: Cough, Congestion. Maybe mild yellowish sputum. Wheezing. No hemoptysis. Shortness of breath. CARDIOVASCULAR: No angina symptoms. No CHF symptoms. No atypical chest pain for CAD. No palpitations. No PND. No orthopnea. GASTROINTESTINAL: No abdominal pain. No nausea or vomiting. No diarrhea or constipation. No hematemesis. No hematochezia. Appetite has been diminishing for past couple of days. GENITOURINARY: No urgency. No frequency. No dysuria. No hematuria. No obstructive symptoms. No discharge. No pain. No significant abnormal bleeding. MUSCULOSKELETAL: No musculoskeletal pain. No joint swelling. No arthritis. NEUROLOGICAL: No headache. No neck pain. No syncope. No seizures. No dizziness. PSYCHIATRIC: Not anxious. No depression. No suicidal thoughts. No homicidal thoughts. SKIN: No rash. No lesions. No wounds. ENDOCRINE: No unexplained weight loss. No weight gain. HEMATOLOGIC/LYMPHATIC: No anemia. No purpura. No petechiae. No prolonged or excessive bleeding. No palpable lymph nodes. PERSONAL/FAMILY/SOCIAL HISTORY: The patient is , retired. No smoker, No alcohol abuse. He does all activity of daily living. MEDICATIONS: Singulair 10.4mg at HS Lipitor 80mg PO daily [place] 7.5-325mg QID PRN ProAir QID PRN Mucinex one spray twice a day PRN Losartan 50mg PO daily Allergy shots by Dr. Bass ALLERGIES: Ibuprofen Cephalexin Ciprofloxacin PHYSICAL EXAMINATION: GENERAL: The patient is oriented to time,place and person. VITAL SIGNS: Temperature 97.2, pulse 90, respiratory rate 20, blood pressure 190/104. Oxygen saturation 96%. The patient's blood pressure repeated on the floor which was noted to be 140/82. HEENT: Head normocephalic, atraumatic. Eyes: Extraocular muscles are intact. Pupils are equal, round and reactive to light and accommodation. Ears: No lesions. Nose appeared normal. Throat: No exudate or erythema. NECK: Supple. No JVD, no carotid bruit. No lymphadenopathy or thyromegaly. LUNGS: Bilateral faint expiratory wheeze with crepitations, dry on left base. Percussion note normal. Chest symmetrical. HEART: S1, S2, no S3. No murmur. No cyanosis or clubbing. No ascites. Pulses: Dorsalis pedis and posterior tibial pulses +1 to +2 bilaterally. ABDOMEN: Soft. Nontender. Bowel sounds active. No CVA tenderness. No mass felt. EXTREMITIES: No edema. Full range of motion of all extremities, equal. NEUROLOGIC: No focal deficit. Cranial nerves II through XII are grossly intact. No headache, no double vision or headache. SKIN: Not dry. Intact. Turgor - normal. LYMPHATIC: No palpable lymph nodes/no lymphedema. MUSCULOSKELETAL: Normal joints with no swelling. Muscle tone is normal. LABS: Chest x-ray infiltrate on the left base and right. Arterial blood gasses declined by the patient. COVID test negative. Rhinovirus positive. PRO BNP 57, Albumin and protein normal. Creatinine 0.7, BUN 9. Glucose 157 non-fasting. Hgb 15, hct 43, WBC 8,500 normal differential. Eosinophil count 15.4. Ct of the chest showed bilateral lower airway thickening suggesting small airway infection or inflammation, mild left basilar ground glass with atelectasis. Coronary calcification noted. ASSESSMENT: 1. Acute exacerbation of bronchial asthma could be related to the inhalation of mold with increase eosinophil. 2. Acute pneumonitis, could be bacterial Rhinovirus possibility 3. History of bronchial asthma and allergies followed by environmental monitoring specialist 4. History of hypertension 5. Coronary calcification by CT scan done today 6. Fatty liver 7. Status post cholecystectomy 8. Restless leg syndrome 9. Severe dyslipidemia 10.History of bicep repair, right 11.Right knee osteoarthritis 12.Sciatica 13.Cervical radiculopathy 14.Left arm numbness 15.Vitamin D deficiency 16.DJD of the spine PLAN: 1. Admit the patient 2. Rocephin and Zithromax combination 3. Steroids 4. Inhalers 5. Fluids 75cc per minute 6. Telemetry 7. EKG The patient refused arterial blood gasses. CONDITION: Stable. TIME SPENT: More than 70 minutes. MTDD
[2020-05-30] MEDS ORDERED: BENADRYL PO ONE ×2 (13:36→21:00)
--- NOTE | 2020-05-30 13:43 | PN ---
DATE OF SERVICE: 05/29/2020 SUBJECTIVE: The patient was seen and examined in the hospital room 108. The patient was hospitalized with bilateral pneumonitis which probably occurred from inhaling mold. The patient has been working underneath a house trying to key the house up and there is a lot of mold which he has been sick, cough with wheezing. Very sure possibility of bilateral pneumonitis more on the left than the right. Refused blood gasses. Oxygen saturation is 97% on room air. He was hospitalized with IV antibiotics, steroids and NEBS treatment. The patient's labs are all acceptable. The COVID test is negative. The Rhinovirus is positive could be the patient has Rhinovirus infection also. In any case overall cardiovascular status is stable. TIME SPENT: More than 30 minutes. Plan and coordination of the patient's care discussed in the presence of nurse. MACIEJ
[2020-05-30] MEDS: PULMICORT 1 MG/2 ML NEB SCH (17:05)
[2020-05-31] MEDS: PULMICORT 1 MG/2 ML NEB SCH ×2 (05:05→19:06)
[2020-05-31] MEDS: DUONEB NEB SCH ×4 (05:05→23:19)
[2020-05-31] MEDS: SOLU-MEDROL 125 MG IVP SCH (05:06)
[2020-05-31] MEDS: SODIUM CHLORIDE 1,000 ML IV SCH ×2 (06:34→18:34)
[2020-05-31] MEDS: PHENERGAN WITH CODEINE 6.25/10 MG/5 ML PO PRN ×2 (06:37→14:26)
[2020-05-31] MEDS: LIPITOR PO SCH (08:25)
[2020-05-31] MEDS: COZAAR PO SCH ×2 (08:25→20:35)
[2020-05-31] MEDS: ZITHROMAX PO SCH (08:25)
[2020-05-31] MEDS: NORVASC PO SCH ×2 (08:25→20:35)
[2020-05-31] MEDS: MUCINEX DM ER 600-30 MG TABLET PO SCH ×2 (08:26→20:36)
[2020-05-31] MEDS: ZAFIRLUKAST 20 MG PO SCH (08:33)
[2020-05-31] MEDS: PREDNISONE PO SCH (16:40)
[2020-05-31] MEDS ORDERED: VISTARIL PO PRN (20:22)
[2020-06-01] MEDS: DUONEB NEB SCH (05:02)
[2020-06-01] MEDS: PULMICORT 1 MG/2 ML NEB SCH (05:02)
[2020-06-01 05:48] VITALS: BP 150/83; TEMP 98.1
[2020-06-01 07:30] LABS: BASOPHILS % (AUTO) 0.1 % (0.0-3.0); EOSINOPHILS % (AUTO) 0.2 % (0.0-7.0); HEMATOCRIT 40.9 % (42.0-52.0); HEMOGLOBIN 13.9 g/dl (14.0-18.0); IMMATURE GRANULOCYTE % (AUTO) 0.2 % (0.0-5.0); LYMPHOCYTES % (AUTO) 5.8 (10.0-50.0); MEAN CORPUSCULAR HEMOGLOBIN 29.8 pg (27.0-31.0); MEAN CORPUSCULAR VOLUME 87.6 fl (80.0-94.0); MONOCYTES # (AUTO) 1.2 K/uL (0.4-2.0); MONOCYTES % (AUTO) 6.9 (0-10); NEUTROPHILS # (AUTO) 14.6 K/ul (2.0-6.9); NEUTROPHILS % (AUTO) 86.8 % (42.2-75.2); RDW COEFFICIENT OF VARIATION 12.8 % (11.6-14.8); RED BLOOD COUNT 4.67 10^6/ul (4.70-6.10); WHITE BLOOD COUNT 16.82 K/ul (4.2-10.2)
[2020-06-01 07:34] LABS: ALANINE AMINOTRANSFERASE 88.4 U/L (0-50); ALBUMIN 3.84 g/dL (3.5-5.0); ALKALINE PHOSPHATASE 71.7 U/L (56-119); ASPARTATE AMINO TRANSFERASE 75.7 U/L (17-59); BILIRUBIN,TOTAL 0.55 mg/dL (0.2-1.3); BLOOD UREA NITROGEN 20.5 mg/dL (9-20); CALCIUM 9.1 mg/dL (8.4-10.2); CHLORIDE 107.8 mmol/L (98-107); CREATININE 0.62 mg/dL (0.60-1.10); GLUCOSE 108.8 mg/dL (74-106); POTASSIUM 3.92 mmol/L (3.5-5.1); SODIUM 139.2 mmol/L (134.5-145); TOTAL PROTEIN 6.89 g/dL (6.3-8.2)
[2020-06-01 07:43] LABS: PLATELET COUNT 291 10^3/uL (140-440)
[2020-06-01] MEDS ORDERED: PREDNISONE PO SCH (08:30)
[2020-06-01] MEDS: COZAAR PO SCH (08:40)
[2020-06-01] MEDS: NORVASC PO SCH (08:40)
[2020-06-01] MEDS: PREDNISONE PO SCH (08:40)
[2020-06-01] MEDS: MUCINEX DM ER 600-30 MG TABLET PO SCH (08:40)
[2020-06-01] MEDS: LIPITOR PO SCH (08:40)
[2020-06-01] MEDS: ZAFIRLUKAST 20 MG PO SCH (08:41)
--- NOTE | 2020-06-01 09:07 | PCM.PROG ---
Attending Provider: ATTENDING PROVIDER: Dr. KRIS HARRIS This patient is seen with Yaa Angeles, Nurse Practitioner. DATE OF SERVICE: 06/01/20 SUBJECTIVE: This 64 year old /WHITE M was hospitalized 05/29/20. The patient is resting comfortably in bed. Wheezing has significantly improved. He is no longer wearing oxygen. Blood pressure is under control. He is up and about, ready to go home. REVIEW OF SYSTEMS: CONSTITUTIONAL: No night sweats. No fatigue, malaise, lethargy. No fever or chills. HEENT: Eyes: No visual changes. No eye pain. No eye discharge. ENT: No runny nose. No epistaxis. No sinus pain. No odynophagia. No congestion. RESPIRATORY: Cough. No hemoptysis. No shortness of breath. CARDIOVASCULAR: No angina symptoms. No CHF symptoms. No atypical chest pain for CAD. No palpitations. No orthopnea.. GASTROINTESTINAL: No abdominal pain. No nausea or vomiting. No diarrhea or constipation. No hematemesis. No hematochezia. GENITOURINARY: No urgency. No frequency. No dysuria. No hematuria. No obstructive symptoms. No discharge. No pain. No significant abnormal bleeding. MUSCULOSKELETAL: No musculoskeletal pain; no joint swelling. NEUROLOGICAL: Awake, alert, oriented to time, place and person. No headache. No neck pain. No syncope. No seizures. No dizziness. PSYCHIATRIC: Not anxious. No depression. No suicidal thoughts. No homicidal thoughts. SKIN: No rash. No lesions. No wounds. ENDOCRINE: No unexplained weight loss. No weight gain. HEMATOLOGIC/LYMPHATIC: No anemia. No purpura. No petechiae. No prolonged or excessive bleeding. No palpable lymph nodes. PHYSICAL EXAMINATION: GENERAL: The patient is awake, alert and oriented, lying/sitting in bed in no distress. VITAL SIGNS: Temperature 98.1 F, Pulse 74, Respiratory Rate 18, BP 150/83, Pulse Ox 97% HEENT: Head normocephalic, atraumatic. Eyes: Extraocular muscles are intact. Pupils are equal, round and reactive to light and accommodation. Ears: No les ions. Nose appeared normal. Throat: No exudate or erythema. NECK: Supple. No JVD, no carotid bruit. No lymphadenopathy or thyromegaly. LUNGS: Diminished breath sounds with faint expiratory wheeze. Percussion note normal. Chest symmetrical. HEART: S1, S2, no S3. No murmurs. No cyanosis or clubbing. No ascites. Pulses: Dorsalis pedis and posterior tibial pulses +1 to +2 both sides. ABDOMEN: Soft. Non-tender. Bowel sounds active. No CVA tenderness. No mass felt. EXTREMITIES: No edema. Full range of motion of all extremities, equal. NEUROLOGIC: No focal deficit. Cranial nerves II through XII are grossly intact. No headache. No double vision. SKIN: Not dry. Intact. Turgor-normal. LYMPHATIC: No palpable lymph nodes/no lymphedema. MUSCULOSKELETAL: Normal joints with no swelling. Muscle tone is normal. LAB REVIEW: 06/01/20 05:00 06/01/20 05:00 06/01/20 05:00: Sodium 139.2, Potassium 3.92, Chloride 107.8 H, Carbon Dioxide 26.0, Anion Gap 9.32, BUN 20.5 H, Creatinine 0.62, Estimated GFR (MDRD) 131.00, BUN/Creatinine Ratio 33.06, Glucose 108.8 H, Calcium 9.10, Total Bilirubin 0.55, AST 75.7 H D, ALT 88.4 H D, Alkaline Phosphatase 71.7, Total Protein 6.89, Albumin 3.84, Globulin 3.05, Albumin/Globulin Ratio 1.25 06/01/20 05:00: WBC 16.82 H D, RBC 4.67 L, Hgb 13.9 L, Hct 40.9 L, MCV 87.6, MCH 29.8, MCHC 34.0, RDW Coeff of Guy 12.8, Plt Count 291, Immature Gran % (Auto) 0.2, Neut % (Auto) 86.8 H, Lymph % (Auto) 5.8 L, Posey % (Auto) 6.9, Eos % (Auto) 0.2, Baso % (Auto) 0.1, Neut # (Auto) 14.6 H, Lymph # (Auto) 1.0, Posey # (Auto) 1.2, Eos # (Auto) 0.0, Baso # (Auto) 0.0, Immature Gran # (Auto) 0.0 06/01/20 05:00: Hemoglobin A1c 5.76 ASSESSMENT: Please see below. 1. Bilateral pneumonia. 2. Reactive airway disease. 3. Hypertension. PLAN: 1. Discharge home. 2. Prednisone 20 mg b.i.d. times three days then daily times four days. 3. Continue cough syrup. 4. Albuterol inhaler two puffs t.i.d. and wean as tolerated. 5. Instructed patient to stay indoors and avoid allergens. 6. Stop IV fluids. Plan and coordination of the patient's care discussed in the presence of [employer]izing Machine Back Tender and nurse. CONDITION: Stable SCRIBED BY: ABBY GONZALES Rigging Supervisor scribed while in presence of service performed by Dr. Harris/Yaa Angeles APRN on 06/01/20 (1973)
--- NOTE | 2020-06-01 09:50 | CM.DICTOOL ---
ADMISSION: 05/29/20 09:59 DISCHARGE: JUNE 01, 2020 DATE OF SERVICE: 06/01/20 FINAL DIAGNOSIS PNEUMONIA, BILATERAL REACTIVE AIRWAY DISEASE HYPERTENSION BRONCHIAL ASTHMA ALLERGIES (FOLLOWED BY NEURORADIOLOGIST) DYSLIPIDEMIA ARTHRITIS DIVERTICULOSIS FATTY LIVER LEFT SIDED TRANSVERSE PROCESS FRACTURE L1,L2,L3 AND L4 ([address]) FRACTURE LEFT ANKLE COLONOSCOPY (01/2020) CHOLECYSTECTOMY CARPAL TUNNEL SURGERY SINUS SURGERY ECHOCARDIOGRAM 04/2020 LVEF 55% BORDERLINE LVH WITH BORDERLINE LA CAVITY ENLARGEMENT NORMAL LV CONTRACTILITY NORMAL VALVES STRESS ECHO: 05/03/[address]-T WAVE CHANGES LAST VITALS Temp Pulse Resp BP Pulse Ox 98.1 F 74 18 150/83 H 97 06/01/20 05:47 06/01/20 05:47 06/01/20 05:47 06/01/20 05:47 06/01/20 05:47 TAKE THESE MEDICATIONS AT HOME Hydrocodone Bitart/Acetaminophen (Hydrocodone Bit/Acetaminophen 7.5/325 Mg Tablet) 1 tab PO QID PRN PRN Reason: BACK PAIN Last Admin: 05/30/20 09:09 Dose: 1 tab Documented by: Amlodipine Besylate (Amlodipine Besylate 5 Mg Tablet) 5 mg PO BID ANGELIKA (NEW RX) Last Admin: 06/01/20 08:40 Dose: 5 mg Documented by: Atorvastatin Calcium (Atorvastatin Calcium 20 Mg Tablet) 80 mg PO DAILY [facility] Last Admin: 06/01/20 08:40 Dose: 80 mg Documented by: Losartan Potassium (Losartan Potassium 25 Mg Tablet) 50 mg PO BID ANGELIKA (NEW RX) Last Admin: 06/01/20 08:40 Dose: 50 mg Documented by: Non-Formulary Medication (Zafirlukast) 20 mg PO DAILY [facility] Last Admin: 06/01/20 08:41 Dose: Not Given Documented by: Prednisone (Prednisone 20 Mg Tablet) 20 mg PO DAILYWM ANGELIKA (NEW RX) Last Admin: 06/01/20 08:40 Dose: 20 mg Documented by: Promethazine HCl/Codeine (Promethazine/Codeine Syrup 6.25/10 Mg/5 Ml Disp.Syringe) 5 - 10 ml PO Q8HR PRN (NEW RX) PRN Reason: Cough Last Admin: 05/31/20 14:26 Dose: 10 ml Documented by: Nasonex Intranasal Daily PRN Albuterol Inhaler (ProAir HFA) 2 puffs as directed (NEW RX) ALLERGIES ibuprofen Allergy (Severe, Verified 05/30/20 08:25) Anaphylaxis cephalexin [From Keflex] Adverse Reaction (Verified 05/29/20 07:44) ciprofloxacin [From Cipro] Adverse Reaction (Verified 05/29/20 07:44) DISCONTINUED MEDICATIONS LOSARTAN 50 MG DAILY MEDICATION CHANGE INCREASE LOSARTAN TO 50 MG BID NEW PRESCRIPTIONS: AMLODIPINE 5 MG BID LOSARTAN 50 MG BID PREDNISONE 20 MG BID FOR 3 DAYS, THEN DAILY FOR 4 DAYS ALBUTEROL INHALER 2 PUFFS TID FOR 2 DAYS, THEN BID FOR 2 DAYS, THEN DAILY FOR 2 DAYS AND STOP PHENERGAN WITH CODEINE 6/25/10MG/5ML 1-2 TSP. EVERY 8 HOURS PRN SMOKING: NOT APPLICABLE DISEASE SPECIFIC EDUCATION: NEW MEDICATIONS HYPERTENSION USE OF ORAL STEROIDS AND RISK OF GI IRRITATION APPOINTMENT ACTIVITY TAPERING DOSE OF ALBUTEROL INHALER LAB REVIEW: 06/01/20 05:00 06/01/20 05:00 06/01/20 05:00: Sodium 139.2, Potassium 3.92, Chloride 107.8 H, Carbon Dioxide 26.0, Anion Gap 9.32, BUN 20.5 H, Creatinine 0.62, Estimated GFR (MDRD) 131.00, BUN/Creatinine Ratio 33.06, Glucose 108.8 H, Calcium 9.10, Total Bilirubin 0.55, AST 75.7 H D, ALT 88.4 H D, Alkaline Phosphatase 71.7, Total Protein 6.89, Albumin 3.84, Globulin 3.05, Albumin/Globulin Ratio 1.25 06/01/20 05:00: WBC 16.82 H D, RBC 4.67 L, Hgb 13.9 L, Hct 40.9 L, MCV 87.6, MCH 29.8, MCHC 34.0, RDW Coeff of Guy 12.8, Plt Count 291, Immature Gran % (Auto) 0.2, Neut % (Auto) 86.8 H, Lymph % (Auto) 5.8 L, Jay % (Auto) 6.9, Eos % (Auto) 0.2, Baso % (Auto) 0.1, Neut # (Auto) 14.6 H, Lymph # (Auto) 1.0, Jay # (Auto) 1.2, Eos # (Auto) 0.0, Baso # (Auto) 0.0, Immature Gran # (Auto) 0.0 06/01/20 05:00: Hemoglobin A1c 5.76 PLAN: DISCHARGE HOME DIET: REGULAR DIET, AVOID ADDED SALT TO DIET ACTIVITY: GRADUALLY RESUME TOLERATED AVOID OUTSIDE ACTIVITY FOR SEVERAL DAYS; MAY RESUME NORMAL ACTIVITY TOLERATED IN 4-5 DAYS AN APPOINTMENT IS SCHEDULED WITH DR. HARRIS/DERICK SANTOS APRN ON May AT 1:30 PM CODE STATUS: FULL CODE MR. MAGALLANES IS ALERT AND ORIENTED X 4. HE LIVES AT HOME WITH HIS , BRITTANY. HE IS INDEPENDENT WITH ALL ACTIVITIES OF DAILY LIVING. HE IS ACTIVE IN AND OUTSIDE THE HOME. HYDRATION STATUS HAS IMPROVED. MEAL INTAKES ARE 75-100%. HE IS AMBULATORY IN THE ROOM. HE DOES NOT REQUIRE STAFF ASSIST OR USE OF ANY TYPE OF ASSISTIVE DEVICE. HE IS CONTINENT OF BLADDER AND BOWEL. SKIN IS INTACT, BUT HE DOES HAVE SMALL SCATTERED RED, RASH LIKE AREAS TO THE WRISTS AND FOREARMS. HE REPORTS ONLY MINIMAL ITCHING TO THESE AREAS TODAY. NO OPEN WOUNDS NOTED. NO DISCHARGE NEEDS IDENTIFIED BY THE PATIENT. MD DERICK AGUILAR APRN
--- NOTE | 2020-06-01 10:39 | PN ---
DATE OF SERVICE: 05/31/20 SUBJECTIVE: The patient was hospitalized with bilateral pneumonitis, shortness of breath. The patient's condition has steadily improved. He is feeling a lot better. REVIEW OF SYSTEMS: CONSTITUTIONAL: No night sweats. No fatigue, malaise, lethargy. No fever or chills. HEENT: Eyes: No visual changes. No eye pain. No eye discharge. ENT: No runny nose. No epistaxis. No sinus pain. No sore throat. No odynophagia. No congestion. RESPIRATORY: Much less cough. No hemoptysis. No shortness of breath like what it was before. CARDIOVASCULAR: No angina symptoms. No CHF symptoms. No atypical chest pain for CAD. No palpitations. No PND. No orthopnea. GASTROINTESTINAL: No abdominal pain. No nausea or vomiting. No diarrhea or constipation. No hematemesis. No hematochezia. GENITOURINARY: No urgency. No frequency. No dysuria. No hematuria. No obstructive symptoms. No discharge. No pain. No significant abnormal bleeding. MUSCULOSKELETAL: No musculoskeletal pain; no joint swelling. NEUROLOGICAL: No headache. No neck pain. No syncope. No seizures. No dizziness. PSYCHIATRIC: Not anxious. No depression. No suicidal thoughts. No homicidal thoughts. SKIN: No rash. No lesions. No wounds. ENDOCRINE: No unexplained weight loss. No weight gain. HEMATOLOGIC/LYMPHATIC: No anemia. No purpura. No petechiae. No prolonged or excessive bleeding. No palpable lymph nodes. PHYSICAL EXAMINATION: GENERAL: The patient is oriented to time, place and person. HEENT: Head normocephalic, atraumatic. Eyes: Extraocular muscles are intact. Pupils are equal, round and reactive to light and accommodation. Ears: No lesions. Nose appeared normal. Throat: No exudate or erythema. NECK: Supple. No JVD, no carotid bruit. No lymphadenopathy or thyromegaly. LUNGS: Good air entry bilaterally. Percussion note normal. Chest symmetrical. HEART: S1, S2, no S3. No murmurs. No cyanosis or clubbing. No ascites. Pulses: Dorsalis pedis and posterior tibial pulses +1 to +2 bilaterally. ABDOMEN: Soft. Nontender. Bowel sounds active. No CVA tenderness. No mass felt. EXTREMITIES: No edema. Full range of motion of all extremities, equal. NEUROLOGIC: No focal deficit. Cranial nerves II through XII are grossly intact. No headache. No double vision. SKIN: Not dry. Intact. Turgor - normal. LYMPHATIC: No palpable lymph nodes/no lymphedema. MUSCULOSKELETAL: Normal joints with no swelling. Muscle tone is normal. ASSESSMENT: 1. The patient's blood pressure this morning is 148/78 better than what it has been. The patient is on Cozaar and Norvasc b.i.d. 2. Bilateral allergic pneumonitis seems to be improving. 3. Chronic lung disease with chronic bronchial asthma. 4. Hypertension. 5. Dyslipidemia. PLAN: 1. DASH diet discussed. Advised to cut down on salt intake. Advised to lose weight, at least 5 to 10 lbs. 2. Discontinue IV steroids. 3. Will put him on p.o. Prednisone. 4. Continue antibiotics. 5. Continue Amlodipine and Losartan. CONDITION: Stable. TIME SPENT: More than 30 minutes. Plan and coordination of the patient's care discussed in the presence of nurse. MACIEJ
--- NOTE | 2020-06-02 10:08 | DS ---
DATE OF SERVICE: 06/01/2020 FINAL DIAGNOSIS: PNEUMONIA, BILATERAL REACTIVE AIRWAY DISEASE HYPERTENSION BRONCHIAL ASTHMA ALLERGIES (FOLLOWED BY MEDICAL HISTORIAN) DYSLIPIDEMIA ARTHRITIS DIVERTICULOSIS FATTY LIVER LEFT SIDED TRANSVERSE PROCESS FRACTURE L1,L2,L3 AND L4 ([address]) FRACTURE LEFT ANKLE COLONOSCOPY (01/2020) CHOLECYSTECTOMY CARPAL TUNNEL SURGERY SINUS SURGERY ECHOCARDIOGRAM 04/2020 LVEF 55% BORDERLINE LVH WITH BORDERLINE LA CAVITY ENLARGEMENT NORMAL LV CONTRACTILITY NORMAL VALVES STRESS ECHO: 05/03/[address]-T WAVE CHANGES LAST VITALS: Temp Pulse Resp BP Pulse Ox 98.1 F 74 18 150/83 H 97 06/01/20 05:47 06/01/20 05:47 06/01/20 05:47 06/01/20 05:47 06/01/20 05:47 DISCHARGE INSTRUCTIONS: DISCHARGE HOME. AN APPOINTMENT IS SCHEDULED WITH DR. HARRIS/DERICK SANTOS APRN ON May AT 1:30 PM. CODE STATUS: FULL CODE TAKE THESE MEDICATIONS AT HOME: Hydrocodone Bitart/Acetaminophen (Hydrocodone Bit/Acetaminophen 7.5/325 Mg Tablet) 1 tab PO QID PRN PRN Reason: BACK PAIN Last Admin: 05/30/20 09:09 Dose: 1 tab Documented by: Amlodipine Besylate (Amlodipine Besylate 5 Mg Tablet) 5 mg PO BID ANGELIKA (NEW RX) Last Admin: 06/01/20 08:40 Dose: 5 mg Documented by: Atorvastatin Calcium (Atorvastatin Calcium 20 Mg Tablet) 80 mg PO DAILY ANGELIKA Last Admin: 06/01/20 08:40 Dose: 80 mg Documented by: Losartan Potassium (Losartan Potassium 25 Mg Tablet) 50 mg PO BID ANGELIKA (NEW RX) Last Admin: 06/01/20 08:40 Dose: 50 mg Documented by: Non-Formulary Medication (Zafirlukast) 20 mg PO DAILY ANGELIKA Last Admin: 06/01/20 08:41 Dose: Not Given Documented by: Prednisone (Prednisone 20 Mg Tablet) 20 mg PO DAILYWM ANGELIKA (NEW RX) Last Admin: 06/01/20 08:40 Dose: 20 mg Documented by: Promethazine HCl/Codeine (Promethazine/Codeine Syrup 6.25/10 Mg/5 Ml Disp.Syringe) 5 - 10 ml PO Q8HR PRN (NEW RX) PRN Reason: Cough Last Admin: 05/31/20 14:26 Dose: 10 ml Documented by: Nasonex Intranasal Daily PRN Albuterol Inhaler (ProAir HFA) 2 puffs as directed (NEW RX) ALLERGIES: ibuprofen Allergy (Severe, Verified 05/30/20 08:25) Anaphylaxis cephalexin [From Keflex] Adverse Reaction (Verified 05/29/20 07:44) ciprofloxacin [From Cipro] Adverse Reaction (Verified 05/29/20 07:44) DISCONTINUED MEDICATIONS: LOSARTAN 50 MG DAILY MEDICATION CHANGE: INCREASE LOSARTAN TO 50 MG BID NEW PRESCRIPTIONS: AMLODIPINE 5 MG BID LOSARTAN 50 MG BID PREDNISONE 20 MG BID FOR 3 DAYS, THEN DAILY FOR 4 DAYS ALBUTEROL INHALER 2 PUFFS TID FOR 2 DAYS, THEN BID FOR 2 DAYS, THEN DAILY FOR 2 DAYS AND STOP PHENERGAN WITH CODEINE 6/25/10MG/5ML 1-2 TSP. EVERY 8 HOURS PRN SMOKING: NOT APPLICABLE DISEASE SPECIFIC EDUCATION: NEW MEDICATIONS HYPERTENSION USE OF ORAL STEROIDS AND RISK OF GI IRRITATION APPOINTMENT ACTIVITY TAPERING DOSE OF ALBUTEROL INHALER LAB REVIEW: 06/01/20 05:00 06/01/20 05:00 06/01/20 05:00: Sodium 139.2, Potassium 3.92, Chloride 107.8 H, Carbon Dioxide 26.0, Anion Gap 9.32, BUN 20.5 H, Creatinine 0.62, Estimated GFR (MDRD) 131.00, BUN/Creatinine Ratio 33.06, Glucose 108.8 H, Calcium 9.10, Total Bilirubin 0.55, AST 75.7 H D, ALT 88.4 H D, Alkaline Phosphatase 71.7, Total Protein 6.89, Albumin 3.84, Globulin 3.05, Albumin/Globulin Ratio 1.25 06/01/20 05:00: WBC 16.82 H D, RBC 4.67 L, Hgb 13.9 L, Hct 40.9 L, MCV 87.6, MCH 29.8, MCHC 34.0, RDW Coeff of Guy 12.8, Plt Count 291, Immature Gran % (Auto) 0.2, Neut % (Auto) 86.8 H, Lymph % (Auto) 5.8 L, Cloud % (Auto) 6.9, Eos % (Auto) 0.2, Baso % (Auto) 0.1, Neut # (Auto) 14.6 H, Lymph # (Auto) 1.0, Cloud # (Auto) 1.2, Eos # (Auto) 0.0, Baso # (Auto) 0.0, Immature Gran # (Auto) 0.0 06/01/20 05:00: Hemoglobin A1c 5.76 DIET: REGULAR DIET, AVOID ADDED SALT TO DIET ACTIVITY: GRADUALLY RESUME TOLERATED AVOID OUTSIDE ACTIVITY FOR SEVERAL DAYS; MAY RESUME NORMAL ACTIVITY TOLERATED IN 4-5 DAYS HOSPITAL COURSE: This is a white who we admitted through the emergency room with shortness of breath. Initially thought was bilateral pneumonia. I do believe it is more reactive airway disease with severe shortness of breath related to underlying asthma. The patient initially required oxygen on 2 liters. The patient refused ABG's. Oxygen saturation was 88-89% on room air on 2 liters he was up to 95%. He had visible respiratory distress, audible wheezing and he reported that he had been working underneath a house for the past three days which had a lot of mold. Again he does have underlying asthma and severe allergies. 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 He was admitted and placed on Rocephin 1 gram IV daily and then Zithromax 500mg Po daily for three days. Initially started on Solu- Medrol 125mg Q 8 hours and was still significantly wheezing. We upped this for Q 6 hours for 24 hours and this improved. He remained on oxygen for about 36 hours and then today is down to 96% on room air. Blood pressure was elevated initially. He does have underlined hypertension however systolic was in the 180s. He was previous on Losartan 50mg daily and we increased this to BID and added Amlodipine 5mg BID as well. Also to mention he had completed an echo and stress test with Dr. Harris last month which was normal just showed borderline LVH. Stress echo was normal. We will discharge him home today in stable condition. He is to be on Prednisone 20mg BID for the next three days and then daily for 4 days. He is going to continue with the increase with Losartan and then new medication of Amlodipine. He was on Albuterol nebulizer treatment along with Pulmicort nebulizer treatment while he was here. He does not have a nebulizer machine at home. He will go home with an Albuterol inhaler. I have instructed him to do this two puffs three times a day for the next several days and then wean as tolerated. We will followup with him in the office next week. I have instructed him that he needs to stay inside, avoid any kind of allergens. He doesn't need to do any outside mowing or anything this weekend. We will followup with him in the office. TIME SPENT: More than 60 minutes. MACIEJ
--- NOTE | 2020-06-02 14:45 | PN ---
DATE OF SERVICE: 06/01/20 SUBJECTIVE: The patient was seen and examined this morning with nurse practitioner. The patient's condition is improved. His breathing is a lot better. He is not coughing much at all. REVIEW OF SYSTEMS: CONSTITUTIONAL: No night sweats. No fatigue, malaise, lethargy. No fever or chills. HEENT: Eyes: No visual changes. No eye pain. No eye discharge. ENT: No runny nose. No epistaxis. No sinus pain. No sore throat. No odynophagia. No congestion. RESPIRATORY: No cough, no congestion. No hemoptysis. No shortness of breath. CARDIOVASCULAR: No angina symptoms. No CHF symptoms. No atypical chest pain for CAD. No palpitations. No PND. No orthopnea. GASTROINTESTINAL: No abdominal pain. No nausea or vomiting. No diarrhea or constipation. No hematemesis. No hematochezia. GENITOURINARY: No urgency. No frequency. No dysuria. No hematuria. No obstructive symptoms. No discharge. No pain. No significant abnormal bleeding. MUSCULOSKELETAL: No musculoskeletal pain; no joint swelling. NEUROLOGICAL: No headache. No neck pain. No syncope. No seizures. No dizziness. PSYCHIATRIC: Not anxious. No depression. No suicidal thoughts. No homicidal thoughts. SKIN: No rash. No lesions. No wounds. ENDOCRINE: No unexplained weight loss. No weight gain. HEMATOLOGIC/LYMPHATIC: No anemia. No purpura. No petechiae. No prolonged or excessive bleeding. No palpable lymph nodes. PHYSICAL EXAMINATION: V/S: Oxygen saturation 98% on room air. HEENT: Head normocephalic, atraumatic. Eyes: Extraocular muscles are intact. Pupils are equal, round and reactive to light and accommodation. Ears: No lesions. Nose appeared normal. Throat: No exudate or erythema. NECK: Supple. No JVD, no carotid bruit. No lymphadenopathy or thyromegaly. LUNGS: Decreaed breath sounds but clear to auscultation. Good air entry. Percussion note normal. Chest symmetrical. HEART: S1, S2, no S3. No murmurs. No cyanosis or clubbing. No ascites. Pulses: Dorsalis pedis and posterior tibial pulses +1 to +2 bilaterally. ABDOMEN: Soft. Nontender. Bowel sounds active. No CVA tenderness. No mass felt. EXTREMITIES: No edema. Full range of motion of all extremities, equal. NEUROLOGIC: No focal deficit. Cranial nerves II through XII are grossly intact. No headache. No double vision. SKIN: Not dry. Intact. Turgor - normal. LYMPHATIC: No palpable lymph nodes/no lymphedema. MUSCULOSKELETAL: Normal joints with no swelling. Muscle tone is normal. ASSESSMENT: 1. Pneumonitis. 2. Allergic bronchitis with bronchial asthma seems to have resolved with steroids, antibiotics, nebs. 3. The patient had moderate hypertension which has been controlled with Lostartan and Norvasc. The patient's cardiac workup done 3 to 4 weeks ago was negative for ischemia. The patient is to be followed as an outpatient. CONDITION: Stable. TIME SPENT: More than 30 minutes. Plan and coordination of the patient's care discussed in the presence of nurse. MACIEJ
--- NOTE | 2020-06-02 14:47 | PN ---
BILLING 05/29/20 ADMISSION DAY LEVEL 5 05/30/20 INTERMEDIATE 05/31/20 INTERMEDIATE 06/01/20 FINAL DAY D IN DISCHARGE MTDD
== END 2020-06-01 10:15 | disposition home or self-care (01) | DRG 192 ==
LOC: ED 07:41 → MEDSURG A 09:59
PROVIDERS: ADMIT Internal Medicine; ATTEND Internal Medicine